=== PATIENT | female | born 1955 | race Asian ===

== ENCOUNTER 2017-09-16 18:09 | Inpatient (IN) | payer BC ==
[~2017-09-16] VITALS: Ht 157.5 cm; Wt 70.3 kg
[2017-09-16 18:10] VITALS: BP_SYST 158
[2017-09-16 19:43] LABS: BASOPHILS # (AUTO) 0.1 K/uL (0.0-0.2); BASOPHILS % (AUTO) 0.7 % (0.0-2.0); EOSINOPHILS # (AUTO) 0.3 K/uL (0.0-0.4); EOSINOPHILS % (AUTO) 2.8 % (0.0-4.0); HEMATOCRIT 39.8 % (36-48); HEMOGLOBIN 13.3 g/dL (12.0-16.0); LYMPHOCYTES # (AUTO) 2.2 K/uL (1.0-5.5); LYMPHOCYTES % (AUTO) 21.3 % (20.5-51.5); MEAN CORPUSCULAR HEMOGLOBIN 29 pg (27-31); MEAN CORPUSCULAR HGB CONC 33 % (32-36); MEAN CORPUSCULAR VOLUME 86 fL (79.0-98.0); NEUTROPHILS # (AUTO) 6.8 K/uL (1.8-7.7); NEUTROPHILS % (AUTO) 65.2 % (40.0-70.0); PLATELET COUNT (AUTO) 374 K/uL (130-430); RED CELL DISTRIBUTION WIDTH 12.2 % (9.0-15.0); WHITE BLOOD COUNT (AUTO) 10.4 K/uL (4.8-10.8)
[2017-09-16 19:48] LABS: BILIRUBIN,URINE NEGATIVE (NEGATIVE); BLOOD, URINE 1+ (NEGATIVE); CLARITY/URINE CLEAR (CLEAR); COLOR,URINE YELLOW (YELLOW); GLUCOSE,URINE NEGATIVE (NEGATIVE); KETONES,URINE NEGATIVE (NEGATIVE); LEUKOCYTE ESTERASE ,URINE TRACE (NEGATIVE); NITRITE, URINE NEGATIVE (NEGATIVE); PROTEIN URINE NEGATIVE (NEGATIVE); UROBILINOGEN,URINE 0.2 (0.2-1.0)
[2017-09-16 19:56] LABS: CALCIUM 8.7 mg/dL (8.4-11.0); CREATININE 0.86 mg/dL (0.55-1.30); POTASSIUM 3.1 mmol/L (3.5-5.1)
[2017-09-16 20:00] LABS: PROTHROMBIN TIME 10.1 SECS (9.5-12.5)
[2017-09-16 20:01] LABS: ALBUMIN 3.8 g/dL (3.4-4.8); TOTAL BILIRUBIN 0.6 mg/dL (0.0-1.0)
[2017-09-16] MEDS ORDERED: KETOROLAC TROMETHAMINE 30 MG VIAL IVP ONE (20:15)
[2017-09-16] MEDS ORDERED: NACL 0.9% 1,000 ML IV ONE (20:15)
[2017-09-16] MEDS ORDERED: POTASSIUM CHLORIDE 20 MEQ/PKT PACKET PO ONE (20:15)
[2017-09-16 20:17] LABS: BACTERIA,URINE RARE /HPF (None Seen)
[2017-09-16] MEDS ORDERED: METO50TA3 PO (20:35)
[2017-09-16] MEDS ORDERED: VITA400C19 PO (20:39)
[2017-09-16] MEDS ORDERED: CHOL50004 PO (20:39)
[2017-09-16] MEDS ORDERED: MULT PO (20:40)
[2017-09-16 21:00] VITALS: BP_SYST 161
[2017-09-16] MEDS: D5NS 1,000 ML IV SCH (23:42)
[2017-09-17] VITALS (7 sets, daily range): BP systolic 133–147
[2017-09-17] MEDS ORDERED: CEFAZOLIN 1 GM IVPB PREMIX 50 ML IV ONE (00:07)
[2017-09-17] MEDS: FAMOTIDINE PF 20 MG/2 ML VIAL IVP SCH (00:12)
[2017-09-17] MEDS: ceFAZolin SODIUM 1 GM in D5W 50 ML IV SCH ×4 (00:14→22:38)
[2017-09-17 07:15] LABS: ALBUMIN 3.2 g/dL (3.4-4.8); CALCIUM 7.9 mg/dL (8.4-11.0); CREATININE 0.67 mg/dL (0.55-1.30); POTASSIUM 3.5 mmol/L (3.5-5.1)
[2017-09-17 07:25] LABS: BASOPHILS % (AUTO) 0.4 % (0.0-2.0); EOSINOPHILS # (AUTO) 0.3 K/uL (0.0-0.4); EOSINOPHILS % (AUTO) 5.2 % (0.0-4.0); HEMATOCRIT 35.6 % (36-48); LYMPHOCYTES # (AUTO) 1.4 K/uL (1.0-5.5); LYMPHOCYTES % (AUTO) 22.4 % (20.5-51.5); MEAN CORPUSCULAR HEMOGLOBIN 29 pg (27-31); MEAN CORPUSCULAR HGB CONC 34 % (32-36); MEAN CORPUSCULAR VOLUME 87 fL (79.0-98.0); MONOCYTES # (AUTO) 0.7 K/uL (0.0-1.0); MONOCYTES % (AUTO) 11.4 % (1.7-9.3); NEUTROPHILS # (AUTO) 3.9 K/uL (1.8-7.7); NEUTROPHILS % (AUTO) 60.6 % (40.0-70.0); PLATELET COUNT (AUTO) 327 K/uL (130-430); RED BLOOD CELL COUNT(AUTO) 4.11 MIL/uL (4.2-6.2); WHITE BLOOD COUNT (AUTO) 6.3 K/uL (4.8-10.8)
[2017-09-17 07:42] LABS: PROTHROMBIN TIME 10.4 SECS (9.5-12.5)
[2017-09-17] MEDS: METOPROLOL TARTRATE 50 MG TABLET PO SCH (08:22)
[2017-09-17 08:59] LABS: TOTAL BILIRUBIN 0.7 mg/dL (0.0-1.0)
[2017-09-17] MEDS: D5NS 1,000 ML IV SCH (10:52)
[2017-09-17] MEDS ORDERED: LR 1,000 ML IV SCH (12:24)
[2017-09-17] MEDS ORDERED: METOCLOPRAMIDE HCL 10 MG/2 ML VIAL IVP PRN (12:30)
[2017-09-17] MEDS ORDERED: MORPHINE 4 MG/ML INJ. SYRINGE IVP PRN ×3 (12:30)
[2017-09-17] MEDS ORDERED: PROPOFOL 200MG/ 20ML VIAL (DIPRIVAN) IV ONE (15:10)
[2017-09-17] MEDS ORDERED: NEOSTIGMINE METHYLSULFATE 1 MG/ML, 10 ML VIAL IVP ONE (15:10)
[2017-09-17] MEDS ORDERED: ROCURONIUM BROMIDE 10 MG/ML (ZEMURON) IV ONE (15:10)
[2017-09-17] MEDS ORDERED: NS 1000 ML BAG IV ONE (15:10)
[2017-09-17] MEDS ORDERED: METOCLOPRAMIDE HCL 10 MG/2 ML VIAL IVP ONE (15:10)
[2017-09-17] MEDS ORDERED: GLYCOPYRROLATE 0.2 MG/ML VIAL IJ ONE (15:10)
[2017-09-17] MEDS ORDERED: SEVOFLURANE 15 MIN GAS INH ONE (15:10)
[2017-09-17] MEDS ORDERED: NS IRRIG SOLN 1000 ML IR ONE (15:10)
[2017-09-17] MEDS ORDERED: ONDANSETRON HCL 4 MG/2 ML VIAL IVP ONE (15:10)
[2017-09-17] MEDS ORDERED: fentaNYL CITRATE 250 MCG/5 ML AMP IV ONE (15:10)
[2017-09-17] MEDS ORDERED: LR 1,000 ML IV.SOLN IV ONE (15:10)
[2017-09-17] MEDS ORDERED: BUPIVACAINE /EPINEPHRINE/PF 0.5% 30 ML VIAL INJ ONE (15:10)
[2017-09-17] MEDS ORDERED: MIDAZOLAM HCL 5 MG/ML VIAL (VERSED) IV ONE (15:10)
[2017-09-17] MEDS: MORPHINE 2 MG/ML INJ. SYRINGE IVP PRN ×2 (15:30→19:56)
[2017-09-18 00:02] VITALS: BP_SYST 117
[2017-09-18] MEDS: FAMOTIDINE PF 20 MG/2 ML VIAL IVP SCH ×2 (02:13→23:56)
[2017-09-18 04:02] VITALS: BP_SYST 123
[2017-09-18] MEDS: MORPHINE 2 MG/ML INJ. SYRINGE IVP PRN ×2 (04:12→12:57)
[2017-09-18] MEDS: ceFAZolin SODIUM 1 GM in D5W 50 ML IV SCH ×3 (05:08→22:09)
[2017-09-18 07:11] LABS: BASOPHILS % (AUTO) 0.3 % (0.0-2.0); EOSINOPHILS % (AUTO) 0.3 % (0.0-4.0); HEMATOCRIT 34.6 % (36-48); HEMOGLOBIN 11.6 g/dL (12.0-16.0); LYMPHOCYTES # (AUTO) 1.4 K/uL (1.0-5.5); LYMPHOCYTES % (AUTO) 12.8 % (20.5-51.5); MEAN CORPUSCULAR HEMOGLOBIN 29 pg (27-31); MEAN CORPUSCULAR HGB CONC 34 % (32-36); MEAN CORPUSCULAR VOLUME 85 fL (79.0-98.0); MONOCYTES # (AUTO) 0.8 K/uL (0.0-1.0); MONOCYTES % (AUTO) 7.5 % (1.7-9.3); NEUTROPHILS # (AUTO) 8.8 K/uL (1.8-7.7); NEUTROPHILS % (AUTO) 79.1 % (40.0-70.0); PLATELET COUNT (AUTO) 318 K/uL (130-430); RED BLOOD CELL COUNT(AUTO) 4.05 MIL/uL (4.2-6.2); RED CELL DISTRIBUTION WIDTH 12.4 % (9.0-15.0)
[2017-09-18 08:00] VITALS: BP_SYST 119
[2017-09-18] MEDS: METOPROLOL TARTRATE 50 MG TABLET PO SCH (08:20)
[2017-09-18] MEDS: D5NS 1,000 ML IV SCH ×2 (08:20→12:41)
[2017-09-18 12:00] VITALS: BP_SYST 124
[2017-09-18 16:00] VITALS: BP_SYST 120
[2017-09-18] MEDS: ACETAMINOPHEN 325 MG TABLET PO PRN (17:47)
[2017-09-18 21:07] VITALS: BP_SYST 137
[2017-09-19 00:01] VITALS: BP_SYST 133
[2017-09-19] MEDS: D5NS 1,000 ML IV SCH (01:49)
[2017-09-19 04:19] VITALS: BP_SYST 140
[2017-09-19] MEDS ORDERED: ONDANSETRON HCL 4 MG/2 ML VIAL ONE (05:31)
[2017-09-19] MEDS: ceFAZolin SODIUM 1 GM in D5W 50 ML IV SCH (05:39)
[2017-09-19] MEDS: ONDANSETRON HCL 4 MG/2 ML VIAL IVP PRN ×2 (05:39→17:37)
[2017-09-19] MEDS ORDERED: DOCUSATE SODIUM 100 MG CAPSULE PO ONE (06:00)
[2017-09-19 07:14] LABS: BASOPHILS # (AUTO) 0.5 K/uL (0.0-0.2); BASOPHILS % (AUTO) 4.2 % (0.0-2.0); EOSINOPHILS % (AUTO) 0.1 % (0.0-4.0); HEMATOCRIT 37.6 % (36-48); HEMOGLOBIN 12.7 g/dL (12.0-16.0); LYMPHOCYTES # (AUTO) 1.4 K/uL (1.0-5.5); LYMPHOCYTES % (AUTO) 12.1 % (20.5-51.5); MEAN CORPUSCULAR HEMOGLOBIN 29 pg (27-31); MEAN CORPUSCULAR HGB CONC 34 % (32-36); MEAN CORPUSCULAR VOLUME 85 fL (79.0-98.0); MONOCYTES # (AUTO) 0.8 K/uL (0.0-1.0); MONOCYTES % (AUTO) 7.1 % (1.7-9.3); NEUTROPHILS # (AUTO) 8.5 K/uL (1.8-7.7); NEUTROPHILS % (AUTO) 76.5 % (40.0-70.0); PLATELET COUNT (AUTO) 338 K/uL (130-430); WHITE BLOOD COUNT (AUTO) 11.2 K/uL (4.8-10.8)
[2017-09-19 07:35] LABS: CALCIUM 7.9 mg/dL (8.4-11.0); CREATININE 0.74 mg/dL (0.55-1.30); POTASSIUM 3.2 mmol/L (3.5-5.1)
[2017-09-19 07:40] LABS: TOTAL BILIRUBIN 0.7 mg/dL (0.0-1.0)
[2017-09-19 07:59] VITALS: BP_SYST 142
[2017-09-19] MEDS: METOPROLOL TARTRATE 50 MG TABLET PO SCH (09:00)
[2017-09-19] MEDS: KCL 40 mEq in D5W 1000 mL 1,000 ML IV SCH (10:36)
[2017-09-19] MEDS: metroNIDAZOLE 500 mg/NS 100 ML IV SCH ×3 (10:41→21:58)
[2017-09-19] MEDS: ACETAMINOPHEN 325 MG TABLET PO PRN (11:23)
[2017-09-19 11:45] VITALS: BP_SYST 144
[2017-09-19] MEDS: LEVOFLOXACIN 500 MG/D5W 100 ML IV SCH (11:56)
[2017-09-19 16:20] VITALS: BP_SYST 136
[2017-09-19] MEDS ORDERED: MAG-AL HYDROX/SIMETH 30 ML UDC PO PRN (17:45)
[2017-09-19] MEDS: PANTOPRAZOLE SODIUM 40 MG/VIAL (PROTONIX) IVP SCH (19:10)
[2017-09-19 20:00] VITALS: BP_SYST 123
[2017-09-20] VITALS (7 sets, daily range): BP systolic 114–134
[2017-09-20] MEDS: FAMOTIDINE PF 20 MG/2 ML VIAL IVP SCH (00:40)
[2017-09-20] MEDS: KCL 40 mEq in D5W 1000 mL 1,000 ML IV SCH ×3 (01:49→18:02)
[2017-09-20] MEDS: metroNIDAZOLE 500 mg/NS 100 ML IV SCH ×3 (05:55→22:04)
[2017-09-20 07:25] LABS: BASOPHILS % (AUTO) 0.2 % (0.0-2.0); EOSINOPHILS # (AUTO) 0.2 K/uL (0.0-0.4); EOSINOPHILS % (AUTO) 2.5 % (0.0-4.0); HEMATOCRIT 38.8 % (36-48); LYMPHOCYTES # (AUTO) 1.5 K/uL (1.0-5.5); LYMPHOCYTES % (AUTO) 15.2 % (20.5-51.5); MEAN CORPUSCULAR HEMOGLOBIN 29 pg (27-31); MEAN CORPUSCULAR HGB CONC 34 % (32-36); MEAN CORPUSCULAR VOLUME 87 fL (79.0-98.0); MONOCYTES # (AUTO) 0.9 K/uL (0.0-1.0); MONOCYTES % (AUTO) 9.3 % (1.7-9.3); NEUTROPHILS # (AUTO) 7.3 K/uL (1.8-7.7); NEUTROPHILS % (AUTO) 72.8 % (40.0-70.0); PLATELET COUNT (AUTO) 393 K/uL (130-430); RED BLOOD CELL COUNT(AUTO) 4.45 MIL/uL (4.2-6.2); RED CELL DISTRIBUTION WIDTH 11.9 % (9.0-15.0); WHITE BLOOD COUNT (AUTO) 9.9 K/uL (4.8-10.8)
[2017-09-20 07:49] LABS: ALBUMIN 2.8 g/dL (3.4-4.8); CREATININE 0.78 mg/dL (0.55-1.30); POTASSIUM 3.1 mmol/L (3.5-5.1); TOTAL BILIRUBIN 0.6 mg/dL (0.0-1.0)
[2017-09-20] MEDS ORDERED: PANTOPRAZOLE SODIUM 40 MG/VIAL (PROTONIX) IVP ONE (08:45)
[2017-09-20] MEDS ORDERED: IOHEXOL 100 ML IV ONE (09:25)
[2017-09-20] MEDS: PANTOPRAZOLE SODIUM 40 MG/VIAL (PROTONIX) IVP SCH (10:24)
[2017-09-20] MEDS: METOPROLOL TARTRATE 50 MG TABLET PO SCH (10:25)
[2017-09-20] MEDS: LEVOFLOXACIN 500 MG/D5W 100 ML IV SCH (12:00)
[2017-09-20] MEDS ORDERED: LEVO500T20 PO (14:51)
[2017-09-21 01:08] VITALS: BP_SYST 125
[2017-09-21] MEDS: FAMOTIDINE PF 20 MG/2 ML VIAL IVP SCH (01:43)
[2017-09-21 06:02] VITALS: BP_SYST 129
[2017-09-21] MEDS: metroNIDAZOLE 500 mg/NS 100 ML IV SCH (06:24)
[2017-09-21 08:07] VITALS: BP_SYST 138
[2017-09-21] MEDS: METOPROLOL TARTRATE 50 MG TABLET PO SCH (08:34)
[2017-09-21] MEDS: PANTOPRAZOLE SODIUM 40 MG/VIAL (PROTONIX) IVP SCH (08:36)
[2017-09-21 10:35] VITALS: BP_SYST 138
[2017-09-21 11:06] VITALS: BP_SYST 106
[2017-09-21 11:26] VITALS: BP_SYST 106
== END 2017-09-21 10:30 | disposition home or self-care (01) | DRG 854 ==
LOC: SED 18:09 → SMU 20:41
PROVIDERS: ADMIT Internal Medicine; ATTEND Internal Medicine Hospice and Palliative Medicine
PROC: 0DTJ4ZZ Resection of Appendix, Percutaneous Endoscopic Approach (ICD-10-PCS; principal; 2017-09-17 13:45)
DX: A41.9 Sepsis, unspecified organism (principal); K35.80 Unspecified acute appendicitis; I10 Essential (primary) hypertension; K80.20 Calculus of gallbladder without cholecystitis without obstruction; Z79.899 Other long term (current) drug therapy; Z90.710 Acquired absence of both cervix and uterus; Z87.891 Personal history of nicotine dependence
CPT/HCPCS: 36415; 71010; 80053; 81000-TC; 81025; 83605; 83690-TC; 85025; 85610-TC; 85730-TC; 87040-TC; 87070-TC; 87075-TC; 88304; 93005; 94010; 96361; 96374; 99285; C1727; C9113; J0690; J1885; J1956; J2250; J2270; J2405; J2704; J2710; J2765; J3010; J3490; J7030; J7042; J7060; J7120; Q9967

== ENCOUNTER 2019-07-17 14:55 | Emergency (ER) | payer BC, OTHER ==
[~2019-07-17] VITALS: Ht 157.5 cm; Wt 72.1 kg
[~2019-07-17 14:55] MED LIST: CHOL50004 PO; LEVO500T20 PO; METO50TA16 PO; MULT PO; VITA400C19 PO
[2019-07-17 15:16] VITALS: BP_SYST 156
--- NOTE | 2019-07-17 15:22 | NUR ---
Patient to ER bed 8 to gown for evaluation. Side rails up. Report given to Julia DANG.
--- NOTE | 2019-07-17 15:35 | NUR ---
Pt brought by self, A&Ox4, pt presents to ER wtih R knee pain after she was walking downstairs, pt felt a pop, dificulty ambulating , skin pink and warm, cap refill <3.
--- NOTE | 2019-07-17 15:37 | NUR ---
EARL Morillo at bedside examining patient.
[2019-07-17] MEDS ORDERED: KETOROLAC TROMETHAMINE 30 MG VIAL IM ONE (15:45)
[2019-07-17 17:25] VITALS: BP_SYST 148
--- NOTE | 2019-07-17 17:25 | NUR ---
Patient given written and verbal discharge instructions and verbalizes understanding. ER MD discussed with patient the results and treatment provided. Patient in stable condition. ID arm band removed. No Rx given. Patient educated on pain management and to follow up with PMD. Pain Scale 3/10 tolerable for patient. Opportunity for questions provided and answered. Medication side effect fact sheet provided.
== END 2019-07-17 17:25 | disposition home or self-care (01) ==
LOC: SED 14:55
DX: M25.561 Pain in right knee (principal); I10 Essential (primary) hypertension; Z79.899 Other long term (current) drug therapy; Z90.89 Acquired absence of other organs; X50.0XXA Overexertion from strenuous movement or load, initial encounter; Y93.89 Activity, other specified; Y92.89 Other specified places as the place of occurrence of the external cause; Y99.8 Other external cause status
CPT/HCPCS: 73564; 96372; 99283; J1885